=== PATIENT | female | born 1970 | race Caucasian/White ===

== ENCOUNTER 2023-07-22 12:39 | Emergency (ER) | payer OTHER, SELFPAY ==
[2023-07-22 12:40] VITALS: BP 127/84
[2023-07-22] MEDS: OMNIPAQUE 50 ML PO (13:14)
[2023-07-22 13:15] VITALS: BMI 23.1
[2023-07-22 13:32] LABS: % Basophils 0.6 % (0-2); % Eosinophils 0.3 % (0-6); % Immature Granulocytes 0.3 % (0-0.5); % Lymphocytes 7.3 % (20.5-51.1); % Monocytes 5.2 % (1.7-9.3); % Neutrophils 86.3 % (42.2-75.2); Absolute Basophils 0.1 10^3/uL (0-0.2); Absolute Lymphocytes 0.6 10^3/uL (1.2-3.4); Absolute Monocytes 0.4 10^3/uL (0.1-0.6); Absolute Neutrophils 6.8 10^3/uL (1.4-6.5); Hematocrit 34.5 % (37.0-47.0); Hemoglobin 11.9 g/dL (12.0-16.0); Mean Corp Hgb Conc. 34.5 g/dL (33.0-37.0); Mean Corpuscular Volume 92.7 fL (81.0-99.0); Mean Platelet Volume 9.6 fL (7.4-10.4); Nucleated Red Blood Cells % 0 %; Platelet Count 255 10^3/uL (130-400); Red Blood Cell Count 3.72 10^6/uL (4.20-5.40); Red Cell Dist. Width 12.9 % (11.5-14.5); White Blood Cell Count 7.9 10^3/uL (4.8-10.8)
[2023-07-22 13:44] LABS: Urine Albumin Trace (Neg - Trace); Urine Bilirubin Negative (Negative); Urine Character Slightly Cloudy (Clear); Urine Color Yellow; Urine Glucose Negative (Negative); Urine Ketone Negative (Negative); Urine Leukocyte Trace (Negative); Urine Nitrite Negative (Negative); Urine Occult Blood Negative (Negative); Urine Urobilinogen Negative (Neg - 1+)
[2023-07-22 13:44] LABS: HCG, Serum Qualitative Screen Negative
[2023-07-22 13:51] LABS: ALT (SGPT) 13 U/L (0-35); AST (SGOT) 23 U/L (14-36); Albumin 4.2 g/dl (3.5-5.0); Alkaline Phosphatase 54 U/L (38-126); Blood Urea Nitrogen 10 mg/dl (7-17); Calcium 9.4 mg/dl (8.4-10.2); Carbon Dioxide 30 mmol/L (22-30); Chloride 106 mmol/L (98-107); Estimated Creatinine Clearance 105 ml/min; Glucose 144 mg/dl (70-99); Potassium 4.2 mmol/L (3.5-5.1); Sodium 140 mmol/L (135-145); Total Bilirubin 0.4 mg/dl (0.2-1.3); Total Protein 6.7 g/dl (6.3-8.2); eGFR > 60.00
[2023-07-22 14:13] LABS: Urine Amorphous Seen; Urine Bacteria Few (Negative); Urine Red Blood Cell None Seen /HPF (0-2)
--- NOTE | 2023-07-22 14:13 | ED.GENMED ---
History of Present Illness
<Simone Rojas PA-C - Last Filed: 07/22/23 14:16>
General
Chief Complaint: Abdominal Pain
Source: patient
Exam Limitations: none
Time Seen by Provider: 07/22/23 12:46
Travel History
Have you had any contact with someone who has COVID-19?: No
Do you have any symptoms of coronavirus? Fever > 100 degrees, chills, cough, shortness of breath, sore throat, loss of taste or smell, muscle aches, or headache?: No
History of Present Illness
History of Present Illness:
52-year-old female presents complaining of right lower abdominal pain worsening since 2 days ago. No known injury. She was seen by her family doctor at the onset of her symptoms and had a pelvic ultrasound. She shows me the report of the pelvic
ultrasound which demonstrates soft tissue mass in the right lower quadrant. The ovaries were normal. There is no pelvic fluid. It was recommended she had CT and follow-up however the pain is worsening. No fever or vomiting. She has been moving
her bowels without blood in the stool. No urinary symptoms. No prior abdominal surgical history
Phy Exam
<Simone Rojas PA-C - Last Filed: 07/22/23 14:16>
Physical Exam
Physical Exam:
General: Well-appearing female no acute respiratory distress
HEENT: Normocephalic atraumatic
Heart: Regular rate and rhythm no murmurs
Lungs: Clear no wheeze
Abdomen: Soft but tender to the right lower quadrant no guarding or rebound normal bowel sounds nondistended
Extremities: No cyanosis
Skin: warm, no rash
Course
<Simone Rojas PA-C - Last Filed: 07/22/23 14:16>
Orders/Labs/Results
Orders:
Orders
07/22/23 13:07
CT Abd/pel W Iv And Oral Contr Urgent
Comment:
Reason For Exam: rlq pain
Iohexol [Omnipaque] See Protocol PO NOW STA
Test Result ONCE
07/22/23 13:15
Complete Blood Count/With Diff Urgent
Comprehensive Metabolic Panel Urgent
HCG, Serum Qualitative Screen Urgent
07/22/23 13:19
Urinalysis Reflex To Culture Urgent
Date Specimen was Collected: 07/22/23
Time Specimen was Collected: 13:18
Urine Microscopic Reflex Cult Urgent
Abnormal Lab Results
07/22/23 07/22/23
13:15 13:19
RBC 3.72 L 10^6/uL
(4.20-5.40)
Hgb 11.9 L g/dL
(12.0-16.0)
Hct 34.5 L %
(37.0-47.0)
MCH 32.0 H pg
(27.0-31.0)
Absolute Neuts (auto) 6.8 H 10^3/uL
(1.4-6.5)
Absolute Lymphs (auto) 0.6 L 10^3/uL
(1.2-3.4)
Neutrophils % 86.3 H %
(42.2-75.2)
Lymphocytes % 7.3 L %
(20.5-51.1)
Glucose 144 H mg/dl
(70-99)
Leukocyte Esterase Rfl Trace A
(Negative)
Urine Bacteria (Reflex) Few A
(Negative)
07/22/23 13:15
07/22/23 13:15
Vital Signs
Initial and Last Documented VS:
Initial Vital Signs
Temp Pulse Resp BP Pulse Ox
98.2 F 78 20 127/84 100
07/22/23 12:40 07/22/23 12:40 07/22/23 12:40 07/22/23 12:40 07/22/23 12:40
Last Documented Vital Signs
Temp Pulse Resp BP Pulse Ox
98.5 F 63 17 112/56 100
07/22/23 17:38 07/22/23 17:38 07/22/23 17:38 07/22/23 17:38 07/22/23 17:38
<Jessica Childs NP - Last Filed: 07/22/23 23:00>
Orders/Labs/Results
Orders:
Orders
07/22/23 13:07
CT Abd/pel W Iv And Oral Contr Urgent
Comment:
Reason For Exam: rlq pain
Iohexol [Omnipaque] See Protocol PO NOW STA
Test Result ONCE
07/22/23 13:15
Complete Blood Count/With Diff Urgent
Comprehensive Metabolic Panel Urgent
HCG, Serum Qualitative Screen Urgent
07/22/23 13:19
Urinalysis Reflex To Culture Urgent
Date Specimen was Collected: 07/22/23
Time Specimen was Collected: 13:18
Urine Microscopic Reflex Cult Urgent
Abnormal Lab Results
07/22/23 07/22/23
13:15 13:19
RBC 3.72 L 10^6/uL
(4.20-5.40)
Hgb 11.9 L g/dL
(12.0-16.0)
Hct 34.5 L %
(37.0-47.0)
MCH 32.0 H pg
(27.0-31.0)
Absolute Neuts (auto) 6.8 H 10^3/uL
(1.4-6.5)
Absolute Lymphs (auto) 0.6 L 10^3/uL
(1.2-3.4)
Neutrophils % 86.3 H %
(42.2-75.2)
Lymphocytes % 7.3 L %
(20.5-51.1)
Glucose 144 H mg/dl
(70-99)
Leukocyte Esterase Rfl Trace A
(Negative)
Urine Bacteria (Reflex) Few A
(Negative)
07/22/23 13:15
07/22/23 13:15
Vital Signs
Initial and Last Documented VS:
Initial Vital Signs
Temp Pulse Resp BP Pulse Ox
98.2 F 78 20 127/84 100
07/22/23 12:40 07/22/23 12:40 07/22/23 12:40 07/22/23 12:40 07/22/23 12:40
Last Documented Vital Signs
Temp Pulse Resp BP Pulse Ox
98.5 F 63 17 112/56 100
07/22/23 17:38 07/22/23 17:38 07/22/23 17:38 07/22/23 17:38 07/22/23 17:38
<Simone Rojas PA-C - Last Filed: 07/22/23 14:16>
MDM/Problems Addressed
Differential Diagnosis Includes:
Right lower quadrant abdominal pain. Consider appendicitis versus mesenteric adenitis versus hernia. Patient had an ultrasound report on her phone from 2 days ago which I reviewed and demonstrates normal ovaries without evidence of torsion but
there was a soft tissue mass in the right lower quadrant.
Will check labs and urine. CT pending
<Jessica Childs NP - Last Filed: 07/22/23 23:00>
MDM/Problems Addressed
Differential Diagnosis Includes:
Right lower quadrant abdominal pain. Consider appendicitis versus mesenteric adenitis versus hernia. Patient had an ultrasound report on her phone from 2 days ago which I reviewed and demonstrates normal ovaries without evidence of torsion but
there was a soft tissue mass in the right lower quadrant.
Will check labs and urine. CT pending
MDM/Problems Addressed:
52-year-old female presents complaining of right lower abdominal pain worsening since 2 days ago. No known injury. She was seen by her family doctor at the onset of her symptoms and had a pelvic ultrasound. She shows me the report of the pelvic
ultrasound which demonstrates soft tissue mass in the right lower quadrant. The ovaries were normal. There is no pelvic fluid. It was recommended she had CT and follow-up however the pain is worsening. No fever or vomiting. She has been moving
her bowels without blood in the stool. No urinary symptoms. No prior abdominal surgical history
5:[address] abdomen pelvis with p.o. and IV contrast radiology report read: IMPRESSION:
1. 6.6 cm high attenuation oval-shaped mass in the right rectus abdominis muscle in the right lower quadrant anterior abdominal wall most consistent with an ACUTE RECTUS SHEATH HEMATOMA. A soft tissue tumor is considered less likely.
2. Severe inflammation and edema around the urinary bladder and diffuse urinary bladder wall thickening consistent with SEVERE ACUTE CYSTITIS.
3. Mild circumferential wall thickening throughout the descending colon, sigmoid colon, and rectum suspicious for a mild colitis.
Pt now with mild discomfort R abd. She admits she helped her daughter move into her dorm 3 and 2 days ago, carrying things pushing boxes and furniture into abdomen and may very well have bruised her abdominal wall (there is a faint greenish yellow
ecchymosis on R abdominal wall). She did most of the work as her daughter had a broken heel
Pt has no LLQ pain/tenderness, no bowel symptoms, not likely colitis
Pt has noted more frequent urination since the right side abd pain started.
Plan: Pt allergy to PCN (hives) Cipro 250 BID x 3 days to cover both cystitis and possible mild colitis. Rx sent to her pharmacy.
Discussed signs of infection, return instructions reviewed
She will f/u with her PCP.
At discharge pt ambulated out with normal gait.
<Jessica Childs NP - Last Filed: 07/22/23 23:00>
*Critical Care Note
Total Time (30-74mins, 75-104mins- exclusive of procedures): Not Applicable
ED Attending Note
<Simone Rojas PA-C - Last Filed: 07/22/23 14:16>
-
Portions of this chart may have been created with voice recognition software.� Occasional wrong word or��sound alike� substitutions may have occurred due to the inherent limitations of voice recognition software.
Discharge Plan
Departure
Patient Disposition: Home (Routine Discharge)
Date of Disposition: 07/22/23
Time of Disposition: 17:24
Patient with high blood pressure during this ER visit?: No
Condition: Good
Discharge Problem:
Abdominal wall hematoma, Acute cystitis
Instructions: Urinary Tract Infection, Child ED, Abdominal Pain, Hematoma
Prescriptions:
New
ciprofloxacin HCl [Cipro] 250 mg tablet
250 mg PO BID Qty: 6 0RF
Referrals:
Angeline Rodriguez [employer] [Family Provider] - Call in 1-3 days for appt
Activity Restrictions/Additional Instructions:
As we discussed, see your primary care provider in 3-5 days for recheck. Take copies of test results with you.
Avoid lifting anything over 5 lbs for 2 weeks.
Return here immediately for fever, worsening abdominal pain, or feeling sicker in any way.
Interventions
Interventions:
*Risk Screen - Suicide Last Done: 07/22/23 12:40
*General Assessment Last Done: 07/22/23 12:40
*Neglect/Abuse Screening Last Done: 07/22/23 12:40
ED- Fall Risk Assessment Last Done: 07/22/23 13:16
*ED COVID-19 Vaccine History Last Done: 07/22/23 13:16
*Nursing Disposition Last Done: 07/22/23 17:38
RV-Mhijxn-Dhenxdoekl Assessment Last Done: 07/22/23 13:17
Discharge Date and Time
Discharge Date/Time: 07/22/23 17:39
Print Language: EQUATORIAL GUINEAN
[2023-07-22 17:38] VITALS: BP 112/56
== END 2023-07-22 17:39 | disposition home or self-care (01) ==
LOC: EMR 12:39
PROVIDERS: Physician Assistant; EMERGENCY PHYSICIAN Emergency Medicine; FAMILY PHYSICIAN Nurse Practitioner Adult Health
DX: N30.00 Acute cystitis without hematuria (principal); S30.1XXA Contusion of abdominal wall, initial encounter; R19.03 Right lower quadrant abdominal swelling, mass and lump; X58.XXXA Exposure to other specified factors, initial encounter; Z88.0 Allergy status to penicillin
CPT/HCPCS: 99285; 74177; 80053; 81003; 81015; 84703; 85025; Q9967